=== PATIENT | female | born 1965 | race Caucasian/White ===

== ENCOUNTER → 2016-11-25 | Outpatient (CLI) | payer MEDICARE, MEDICAID ==
[~2016-11-25] MED LIST: ACET500C; AMOX-358 PO; ASPI-999; CALC-927; CETI10TA17; CHOL5000; CLIN300C11 PO; LISI-556; MAGN500T; METF500T4; MONT10TA24; TIZA2TAB3; TIZA4TAB3
--- OUTSIDE RECORDS SUMMARY | 2016-11-25 11:12 | XMS REPORT | Continuity of Care Document ---
Author Author [facility] Organization [facility] Address Unknown Phone Unavailable Care Team Providers Care Ux Consultant Name Role Phone Mariusz Glez PCP [phone] Source Comments Some departments are not documenting in the electronic medical record. If you do not see the information that you expected, contact Release of Information in the Health Information Management department at [phone] for further assistance in locating additional records.[facility] Active Allergies and Adverse Reactions Allergen Noted Date Severity Reactions Comments Pcn 03/03/2009 Current Medications Prescription Sig. Disp. Refills Start End Date Status Date rosiglitazone (AVANDIA) 4 Take 4 mg by mouth Daily Active mg tablet With Breakfast. Phenytoin Sodium Extended Take 300 mg by mouth At Active (PHENYTEK) 300 mg Cap Bedtime Daily. tizanidine (ZANAFLEX) 2 Take 2 mg by mouth Three Active mg tablet Times Daily. pregabalin (LYRICA) 75 mg Take 75 mg by mouth Twice Active capsule Daily. cetirizine (ZYRTEC) 10 mg Take 10 mg by mouth Active tablet Daily. aspirin 81 mg chew tablet Take 81 mg by mouth Active Daily. Yzcvwsm-Zeqofslzz-Vlgy Take 1 Tab by mouth. Active Tab acetaZOLAMIDE (DIAMOX Take 1,000 mg by mouth Active SEQUELS) 500 mg capsule twice daily. Take two 2xday cyanocobalamin (VITAMIN Take 1,000 mcg by mouth Active B-12, RUBRAMIN) 1,000 daily. mcg/mL injection fluticasone (FLONASE) 50 Apply 2 Sprays to each Active mcg/actuation nasal spray nostril as directed daily. medroxyPROGESTERone Inject 150 mg to area(s) Active (contraceptive) as directed every 90 (DEPO-PROVERA) syringe days. metFORMIN (GLUCOPHAGE) Take 500 mg by mouth Active 500 mg tablet daily. montelukast (SINGULAIR) Take 10 mg by mouth at Active 10 mg tablet bedtime daily. 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 We have had some difficulty finding a regimen which does not cause too many side effects but which also adequately treats her leg cramps when walking. She has remained fairly stable on this regimen for some time, and the Diamox seems to have been more effective for her than the Zanaflex, so consideration could be made for tapering down slowly on the Zanaflex. I am reluctant to do so right now, however this could be a consideration in the future. Care would need to be taken to quantify how far Ms. Juarez is able to walk before developing leg cramps because she, understandably, is frustrated by the leg cramps and might give the impression that they occur more easily than is actually the case. L ast Assessment & Plan: 1. Continue current dose of Zanaflex and Diamox with continued monitoring of electrolytes by PCP 2. Consideration could be made for very slowly tapering off the Zanaflex (ie by 1/2 tablet every 2 weeks) with careful documentation of length of trip before leg cramps begin 3. Due to the distance involved in traveling to for follow-up appointments, Ms. Juarez and her care providers prefer to have Dr. Bower manage her Zanaflex and Diamox for now. I believe that she would do well on the current regimen, however as stated above, a very slow titration down on the Zanaflex could be considered. I am happy to see Ms. Juarez back in follow-up should there be any further questions or concerns, however a follow-up appointment has not been scheduled. 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 Cerebral palsy (HCC) 03/04/2009 Unclassified epileptic seizures (HCC) 03/04/2009 Social History Tobacco Use Types Packs/Day Years Used Date Never Smoker Alcohol Use Drinks/Week oz/Week Comments No Last Filed Vital Signs Vital Sign Reading Time Taken Blood Pressure 140/79 10/02/2012 1:18 PM BLEACH PACKER Pulse 68 10/02/2012 1:18 PM BLEACH PACKER Temperature 37 C (98.6 F) 03/08/2009 7:55 AM CDT Respiratory Rate 16 10/02/2012 1:18 PM BLEACH PACKER Height 1.626 m (5' 4") 10/02/2012 1:18 PM BLEACH PACKER Weight 80.74 kg (178 lb) 10/02/2012 1:18 PM BLEACH PACKER Body Mass Index 30.54 10/02/2012 1:18 PM BLEACH PACKER Oxygen Saturation 100% 03/08/2009 7:55 AM CDT Plan of Care Health Maintenance Due Date Last Done Comments Physical (Comprehensive) 1970 Exam Pertussis Vaccine 1974 Tetanus Vaccine 1980 Cervical Cancer Screening 1984 Breast Cancer Screening 2003 Colorectal Cancer 2013 Screening Influenza Vaccine 06/23/2016 Results from Last 3 Months Not on file
--- NOTE | 2016-11-30 19:16 | Diagnostic Imaging Report ---
Bilateral screening mammogram The current study was also evaluated with a Computer Aided Detection (CAD) system. Indication: Screening. No current complaints stated on the questionnaire. COMPARISON: 11/06/15. FINDINGS: The breasts are composed of heterogeneously dense parenchyma which may decrease mammographic sensitivity. No mass, architectural distortion or suspicious cluster of calcification. Benign-appearing calcifications seen. Allowing for technique and positional differences, no suspicious change is seen. IMPRESSION: No significant change. ACR BI-RADS Category 2: Benign findings. Result letter will be mailed to the patient. Note: At least 10% of breast cancer is not imaged by mammography. Dictated by: Dictated on workstation # [id number]
== END ==
LOC: RAD 11:08
PROVIDERS: ATTEND Nurse Practitioner Family
DX: Z12.31 Encounter for screening mammogram for malignant neoplasm of breast (principal)
CPT/HCPCS: 77067

== ENCOUNTER → 2017-07-21 | Outpatient (CLI) | payer MEDICARE, MEDICAID ==
--- NOTE | 2017-07-21 13:49 | Diagnostic Imaging Report ---
INDICATION: Right neck pain. FINDINGS: Real-time imaging of an area of pain shows normal appearing right parotid gland and submandibular gland. Ducts do not appear dilated. The right carotid and jugular vein appear normal. No cervical chain adenopathy is demonstrated. The right lobe of the thyroid measures 5.2 x 2.1 x 1.8 cm. There are two complex hypoechoic solid nodules both measuring approximately 1.4 cm in the midportion. The left lobe measures 3.7 x 1.7 x 1.7 cm. There is an oval hypoechoic nodule midportion left lobe measuring 8 x 5 x 8 mm. There is also a 9 mm cyst present in the left lobe. IMPRESSION: 1. No abnormal findings noted in the right side of the neck where patient complains of pain. 2. Incidentally noted are thyroid nodules bilaterally as described. Followup recommended. Dictated by: Dictated on workstation # [id number]
== END ==
LOC: RAD 12:13
PROVIDERS: ATTEND Nurse Practitioner Family
DX: M54.2 Cervicalgia (principal); E04.2 Nontoxic multinodular goiter
CPT/HCPCS: 76536

== ENCOUNTER → 2017-08-08 | Outpatient (CLI) | payer MEDICARE, MEDICAID ==
[2017-08-08 11:28] LABS: THYROID STIMULATING HORMONE 1.19 UIU/ML (0.35-4.94)
== END ==
LOC: LAB 10:18
PROVIDERS: ATTEND Nurse Practitioner Family
DX: E04.1 Nontoxic single thyroid nodule (principal)
CPT/HCPCS: 36415; 84439; 84443

== ENCOUNTER → 2017-08-15 | Outpatient (CLI) | payer MEDICARE, MEDICAID ==
--- NOTE | 2017-08-16 12:01 | Diagnostic Imaging Report ---
Thyroid scan and uptake Technique: After the oral administration of one ?Ci of I-123 capsule, 4 hour and 24-hour uptake is measured and plantar images over the thyroid gland obtained. Indication: Thyroid nodule FINDINGS: Thyroid uptake at 4 hours is 8.1 %, and the at 24 hours is 24 %. Planar images demonstrate slight heterogeneity in the uptake without a discrete cold or hot nodule. IMPRESSION: Normal thyroid uptake and scan. Dictated by: Dictated on workstation # [id number]
== END ==
LOC: CARD 11:13
PROVIDERS: ATTEND Nurse Practitioner Family
DX: E04.1 Nontoxic single thyroid nodule (principal)
CPT/HCPCS: 78014

== ENCOUNTER → 2017-11-10 | Outpatient (CLI) | payer MEDICARE, MEDICAID ==
[~2017-11-10] MED LIST changes: +IOHEXOL 350 MG/ML 100 ML (OMNIPAQUE 350) VIAL IV ONE; +NS 100 ML (IVPB) BAG IV ONE
[2017-11-10 10:46] LABS: HEMOGLOBIN 13.3 G/DL (11.5-16.0); MEAN PLATELET VOLUME 10.1 FL (7.4-10.4); RED BLOOD COUNT 4.32 10^6/uL (4.35-5.85); RED CELL DISTRIBUTION WIDTH 13.7 % (10.0-14.5); WHITE BLOOD COUNT 5.3 10^3/uL (4.3-11.0)
[2017-11-10 11:08] LABS: BUN/CREATININE RATIO 32; CREATININE SERUM 0.82 MG/DL (0.60-1.30); GFR ESTIMATED > 60
[2017-11-10] MEDS: IOHEXOL 350 MG/ML 100 ML (OMNIPAQUE 350) VIAL IV ONE (11:23)
[2017-11-10] MEDS: NS 100 ML (IVPB) BAG IV ONE (11:23)
[2017-11-10 11:34] LABS: FREE T4 (FREE THYROXINE) 0.94 NG/DL (0.70-1.48)
--- NOTE | 2017-11-10 12:04 | Diagnostic Imaging Report ---
PROCEDURE: CT neck soft tissue with contrast. TECHNIQUE: Multiple contiguous axial images were obtained through the neck after the administration of contrast. INDICATION: Neck pain and sore throat as well as right ear pain. COMPARISON: Comparison is made with prior CT neck from 11/10/2014. FINDINGS: The visualized intracranial structures are unremarkable. Posterior nasopharynx, oropharynx and larynx are unremarkable. The bilateral parotid and submandibular glands appear to be symmetric. No cervical lymphadenopathy is detected. No fluid collections are seen. There is a 9 mm nodule left thyroid lobe, stable. IMPRESSION: Essentially unremarkable CT of the soft tissues of the neck. Dictated by: Dictated on workstation # [id number]
== END ==
LOC: RAD 10:27
PROVIDERS: ATTEND Otolaryngology Otolaryngology/Facial Plastic Surgery
DX: M54.2 Cervicalgia (principal); J02.9 Acute pharyngitis, unspecified; H92.01 Otalgia, right ear
CPT/HCPCS: 36415; 70491; 82565; 84439; 84443; 84520; 85027; 85652

== ENCOUNTER → 2017-12-08 | Outpatient (CLI) | payer MEDICARE, MEDICAID ==
[~2017-12-08] MED LIST changes: -IOHEXOL 350 MG/ML 100 ML (OMNIPAQUE 350) VIAL IV ONE; -NS 100 ML (IVPB) BAG IV ONE
--- NOTE | 2017-12-08 13:45 | Diagnostic Imaging Report ---
INDICATION: Fall with left hand pain. AP, oblique, and lateral views of the left hand are obtained. No fracture or acute bony abnormality is seen. IMPRESSION: Negative left hand. Message left regarding negative findings at 1:44 p.m. 12/08/2017/maryana Dictated by: Dictated on workstation # [id number]
--- NOTE | 2017-12-08 13:59 | Diagnostic Imaging Report ---
INDICATION: Fall with left elbow pain. AP, oblique, and lateral views of the left elbow are obtained. No definite fracture or acute bony abnormality is seen. There is some mild chronic-appearing irregularity of the lateral humeral epicondyle. There is no elevation of the posterior fat pad. There is mild joint space narrowing. IMPRESSION: Mild chronic changes with no acute-appearing bony abnormality. There is no elevation of the posterior fat pad. Message left with [phone] at 1:44 p.m. 12/08/2017/maryana Dictated by: Dictated on workstation # [id number]
--- NOTE | 2017-12-08 14:01 | Diagnostic Imaging Report ---
INDICATION: Left wrist pain. AP, oblique, and lateral views of the left wrist are obtained. No fracture or acute bony abnormality is seen. IMPRESSION: Negative left wrist. Message left with [phone] at 1:44 p.m. 12/08/2017/maryana Dictated by: Dictated on workstation # [id number]
== END ==
LOC: RAD 12:18
PROVIDERS: ATTEND Family Medicine
DX: S50.02XA Contusion of left elbow, initial encounter (principal); M79.642 Pain in left hand; W19.XXXA Unspecified fall, initial encounter
CPT/HCPCS: 73080; 73110; 73130

== ENCOUNTER → 2018-03-06 | Outpatient (CLI) | payer MEDICARE, MEDICAID ==
[~2018-03-06] MED LIST changes: -METF500T4; +METF500T5
--- NOTE | 2018-03-06 17:10 | Diagnostic Imaging Report ---
INDICATION: Right ankle injury. TIME OF EXAM: 5:04 p.m. FINDINGS: Three views of the right ankle were obtained. The alignment is normal. Ankle mortise is well maintained. The talar dome is smooth. No fracture or dislocation is seen. There are posterior and plantar calcaneal spurs. IMPRESSION: No acute fracture is identified. Dictated by: Dictated on workstation # [id number]
--- NOTE | 2018-03-06 17:29 | Diagnostic Imaging Report ---
INDICATION: Right foot pain. TIME OF EXAM: 05:07 p.m. FINDINGS: Three views of the right foot were obtained. There is an acute obliquely oriented fracture through the mid and distal aspects of the fifth metatarsal. No significant displacement or angulation is seen. Remaining metatarsals are intact. The phalanges are intact. Mid foot and hind foot are unremarkable apart from a plantar calcaneal spur. IMPRESSION: Obliquely oriented fifth metatarsal fracture, without displacement. Report given to [facility] ([facility] & faxed to SILVANA Peterson, at 5:26 p.m. 03/06/2018/maryana Dictated by: Dictated on workstation # [id number]
== END ==
LOC: RAD 16:31
PROVIDERS: ATTEND Nurse Practitioner Family
DX: S92.354A Nondisplaced fracture of fifth metatarsal bone, right foot, initial encounter for closed fracture (principal)
CPT/HCPCS: 73610; 73630

== ENCOUNTER → 2018-03-08 | Outpatient (CLI) | payer MEDICARE, MEDICAID ==
--- NOTE | 2018-03-08 18:40 | Diagnostic Imaging Report ---
INDICATION: Routine screening. COMPARISON: Comparison is made with prior exam from 11/25/2016 and 11/06/2015. TECHNIQUE: 2D and 3D bilateral screening mammography was performed with computer-aided detection (CAD) system. FINDINGS: Scattered fibronodular densities are identified bilaterally. There are benign-appearing calcifications bilaterally. No dominant mass or malignant appearing microcalcifications are seen. The axillae are unremarkable. IMPRESSION: No mammographic features suspicious for malignancy are identified. ACR BI-RADS Category 2: Benign findings. Result letter will be mailed to the patient. Note: At least 10% of breast cancer is not imaged by mammography. Dictated by: Dictated on workstation # [id number]
== END ==
LOC: RAD 13:38
PROVIDERS: ATTEND Nurse Practitioner Family
DX: Z12.31 Encounter for screening mammogram for malignant neoplasm of breast (principal)
CPT/HCPCS: 77067

== ENCOUNTER → 2018-07-23 | Outpatient (CLI) | payer MEDICARE, MEDICAID ==
[~2018-07-23] MED LIST changes: +GADOBUTROL 7.5 MMOL/7.5 ML (GADAVIST) VIAL IV ONE; +METF-397; -METF500T5
[2018-07-23 11:02] LABS: BUN/CREATININE RATIO 27; CREATININE SERUM 0.88 MG/DL (0.60-1.30); GFR ESTIMATED > 60
--- NOTE | 2018-07-23 12:01 | Diagnostic Imaging Report ---
PROCEDURE: US Thyroid. TECHNIQUE: Multiple real-time grayscale images were obtained of the thyroid in various projections. INDICATION: Thyroid nodules. Correlation is made with prior soft tissue neck ultrasound from 07/21/2017. FINDINGS: Right lobe of the thyroid measures 4.8 x 2.0 x 1.8 cm and the left lobe measures 4.8 x 1.9 x 1.8 cm. Bilateral thyroid nodules are present. The largest nodule on the left is complex mixed solid and cystic in the lower pole measuring 8 mm x 10 mm x 11 mm. Solid-appearing nodule in the upper pole of left lobe measures approximately 10 mm x 6 mm x 6 mm. On the right, a solid nodule in the upper pole measures 1.3 x 1.2 x 1.0 cm. A nodule in the lower pole measures 1.7 x 1.7 x 1.1 cm. These nodules measured approximately 1.4 cm from prior exam. IMPRESSION: Bilateral thyroid nodules. The largest is in the lower pole of the right lobe which appears to have increased slightly in size when compared with examination one year earlier. Fine-needle aspiration could be performed. Dictated by: Dictated on workstation # [id number]
--- NOTE | 2018-07-23 12:39 | Diagnostic Imaging Report ---
PROCEDURE: MR imaging cervical spine with and without contrast. TECHNIQUE: Multiplanar and multisequence MRI of the cervical spine was performed with and without contrast. INDICATION: Chronic right-sided neck pain. No prior studies are available for comparison. Curvature and alignment of the cervical spine is normal. Vertebral body marrow signal is normal. No geographic marrow lesion is seen. Disc heights are fairly well-maintained. There is generalized desiccation noted. The cervical cord does show homogeneous signal intensity and normal morphology. C2-3: No central canal or neural foraminal stenosis is identified. C3-4: No definite central canal or neural foraminal stenosis is identified. C4-5: There are endplate osteophytes indenting the ventral thecal sac. This does produce mild/moderate narrowing of the canal. There is also moderate bilateral neural foraminal narrowing. C5-6: Broad-based disc/osteophyte complex indents the ventral thecal sac. No significant central canal or neural foraminal stenosis is seen. C6-7: Endplate osteophytes are present. No central canal or neural foraminal stenosis is identified. C7-T1: Unremarkable. No abnormal enhancement following contrast administration is identified. IMPRESSION: Mild cervical spondylosis, greatest at C4-5 level where there is some central canal and neural foraminal narrowing. No other significant abnormality is seen. Dictated by: Dictated on workstation # [id number]
== END ==
LOC: RAD 10:29
PROVIDERS: ATTEND Otolaryngology Otolaryngology/Facial Plastic Surgery
DX: E04.2 Nontoxic multinodular goiter (principal); M47.812 Spondylosis without myelopathy or radiculopathy, cervical region; M48.02 Spinal stenosis, cervical region; M99.71 Connective tissue and disc stenosis of intervertebral foramina of cervical region
CPT/HCPCS: 36415; 72156; 76536; 82565; 84520

== ENCOUNTER → 2018-11-21 | Outpatient (CLI) | payer MEDICARE, MEDICAID ==
[~2018-11-21] MED LIST changes: -GADOBUTROL 7.5 MMOL/7.5 ML (GADAVIST) VIAL IV ONE
--- NOTE | 2018-11-21 12:32 | Diagnostic Imaging Report ---
PROCEDURE: US Thyroid. TECHNIQUE: Multiple real-time grayscale images were obtained of the thyroid in various projections. INDICATION: Thyroid nodule. FINDINGS: The previous thyroid ultrasound exam of 07/23/2018 noted multiple thyroid nodules. These seemed similar to the prior exam of 07/21/2017 with the exception of a nodule in the inferior pole of the right lobe of the thyroid. This nodule measured 1.7 x 1.7 x 1.1 cm. On this study, that nodule does not appear to have changed significantly. It now measures 1.1 x 1.9 x 1.3 cm. Visually this nodule seems quite similar to the prior exam. I would concur with recommendation of the previous study that if further evaluation is desired, then ultrasound-guided biopsy could be performed. If there is no intervention at this time, then a short-term (three-month) follow-up thyroid ultrasound exam should be obtained. The overall appearance of the thyroid gland has not changed. There are multiple hypoechoic lesions in both lobes. The thyroid gland itself is not enlarged with the right lobe measuring 4.4 x 1.8 x 1.9 cm and the left lobe is estimated to be 4.6 x 1.5 x 1.6 cm (normal gland size 4-5 x 2 x 2 cm or less). IMPRESSION: 1. The complex nodule in the inferior pole of the right lobe of thyroid seen on the previous study does not appear to have changed significantly. The relative stability of this finding over a three-month period would indicate that it is not related to an aggressive process. Recommendations as above. 2. The overall appearance of the thyroid gland has not changed significantly either. No new abnormality has developed. 3. These results will be discussed with Dr. Coe. Dictated on workstation # [id number]
== END ==
LOC: RAD 10:12
PROVIDERS: ATTEND Otolaryngology Otolaryngology/Facial Plastic Surgery
DX: E04.2 Nontoxic multinodular goiter (principal)
CPT/HCPCS: 76536

== ENCOUNTER → 2019-06-04 | Outpatient (CLI) | payer MEDICARE, MEDICAID ==
[~2019-06-04] MED LIST changes: -TIZA2TAB3; +TIZA2TAB4; -TIZA4TAB3; +TIZA4TAB4
--- NOTE | 2019-06-04 13:47 | Diagnostic Imaging Report ---
PROCEDURE: US Thyroid. TECHNIQUE: Multiple real-time grayscale images were obtained of the thyroid in various projections. INDICATION: Thyroid nodules. COMPARISON: Correlation is made with prior thyroid ultrasound from 11/21/2018. FINDINGS: Right lobe of the thyroid measures 5.0 x 2.4 x 2.1 cm and the left lobe measures 4.4 x 1.2 x 1.8 cm. Multiple bilateral thyroid nodules are identified. Largest nodule on the right is in the lower pole measuring 2.0 x 1.3 x 1.2 cm. This compares with 1.9 x 1.3 x 1.1 cm on prior. This does contain some microcalcifications. The nodule in the midportion of the right lobe measures 1.2 x 0.8 x 1.4 cm compared with 1.0 x 0.8 x 1.0 cm on prior. No microcalcifications are identified. On the left, nodule at upper pole appears to be stable at 1.0 x 0.5 x 0.8 cm compared to 1.0 x 0.7 x 0.9 cm on prior. Mixed solid and cystic nodule lower pole left lobe measures slightly larger at 1.4 x 1.1 x 1.0 cm compared with 1.0 x 0.9 x 0.8 cm on prior. IMPRESSION: Bilateral thyroid nodules. The nodules in the lower poles of both the right and left lobe do measure slightly larger when compared with prior ultrasound from 11/21/2018. Dictated by: Dictated on workstation # [id number]
== END ==
LOC: RAD 11:07
PROVIDERS: ATTEND Otolaryngology Otolaryngology/Facial Plastic Surgery
DX: E04.2 Nontoxic multinodular goiter (principal)
CPT/HCPCS: 76536

== ENCOUNTER 2019-07-10 11:15 | Outpatient (CLI) | payer MEDICARE, MEDICAID ==
[~2019-07-10] VITALS: Ht 170.2 cm; Wt 83.1 kg
[~2019-07-10 11:15] MED LIST changes: -ACET500C; +ACET500C PO; -ASPI-999; +ASPI-999 PO; -CETI10TA17; +CETI10TA17 PO; -LISI-556; +LISI-556 PO; -MAGN500T; +MAGN500T PO; -METF-397; +METF-397 PO; -MONT10TA24; +MONT10TA24 PO
[2019-07-10] MEDS ORDERED: CALC1TAB94 PO (12:18)
[2019-07-10] MEDS ORDERED: LORA10TA7 PO (12:26)
[2019-07-10] MEDS ORDERED: GABA-488 PO ×2 (12:26)
[2019-07-10] MEDS ORDERED: MELO15TA39 PO (12:26)
== END 2019-07-10 12:27 | disposition home or self-care (01) ==
LOC: PREOP 11:15
PROVIDERS: ATTEND Surgery
DX: Z01.818 Encounter for other preprocedural examination (principal)

== ENCOUNTER 2019-07-15 06:42 | Day surgery (SDC) | payer MEDICARE, MEDICAID ==
[~2019-07-15] VITALS: Ht 170.2 cm; Wt 83.1 kg
[~2019-07-15 06:42] MED LIST changes: +CALC1TAB94 PO; +GABA-488 PO; +LORA10TA7 PO; +MELO15TA39 PO
[2019-07-15] MEDS ORDERED: LACTATED RINGERS 1,000 ML IV ONE (06:47)
[2019-07-15] MEDS ORDERED: LACTATED RINGERS 1,000 ML IV STA (06:55)
[2019-07-15 07:03] VITALS: BP 138/73
[2019-07-15] MEDS ORDERED: PROPOFOL INJECTION 50 ML IV ONE (07:10)
[2019-07-15] MEDS ORDERED: MIDAZOLAM 2 MG/2 ML (VERSED) VIAL ONE (07:10)
--- NOTE | 2019-07-15 08:15 | Progress Note-Pre Operative ---
Pre-Operative Progress Note H&P Reviewed The H&P was reviewed, patient examined and no changes noted. Time Seen by Provider: 08:07 Date H&P Reviewed: Jul 15, 2019 Time H&P Reviewed: 08:08 Pre-Operative Diagnosis: + CologCYDNEY Gama DO Jul 15, 2019 08:15
[2019-07-15 08:45] VITALS: BP 118/69
[2019-07-15 08:48] VITALS: BP 124/79
[2019-07-15 09:11] VITALS: BP 132/81
[2019-07-15 09:13] VITALS: BP 132/81
--- NOTE | 2019-07-15 09:53 | Progress Note-Post Operative ---
Post-Operative Progess Note Surgeon (s)/Pewter Caster (s) Surgeon CYDNEY BARDALES DO Pewter Caster: none Pre-Operative Diagnosis + Cologuard Post-Operative Diagnosis Flat Polyp near Appendix Diverticula Int Hemorrhoids poor prep Procedure & Operative Findings Date of Procedure 07/15/19 Procedure Performed/Findings colon with hot bx Anesthesia Type IV sedation by SPIKE DRIVER Estimated Blood Loss Estimated blood loss (mL): scant Specimens/Packing Specimens Removed bx near CYDNEY Torres DO Jul 15, 2019 09:53
--- NOTE | 2019-07-15 09:55 | Endoscopy Discharge Instruct ---
Endo Procedure/Findings Findings 1.: Polyp 2.: Diverticulosis 3.: Internal Hemorrhoids Discharge Instructions - Activity: You might feel a little sleepy until tomorrow. This is due to the medicine you received to relax you. Until tomorrow, you should: NOT drive a car, operate machinery or power tools. NOT drink any alcoholic beverages. NOT make any important decisions or sign importortant papers. Do not return to work until tomorrow, unless otherwise instructed. Resume previous activities tomorrow. Diet: Start by taking liquids. If you tolerate liquids, advance to solid food. make an appointment for one week 1.: Colonoscopy in 1 year Notify Physician - If you experience excessive bleeding, unusual abdominal pain, fever, or chest pain, contact your doctor immediately. CYDNEY BARDALES DO Jul 15, 2019 09:54
--- NOTE | 2019-07-15 10:08 | Anesthesia-General Post-Op ---
MAC Patient Condition Mental Status/LOC: Same as Preop Cardiovascular: Satisfactory Nausea/Vomiting: Absent Respiratory: Satisfactory Pain: Controlled Complications: Absent Post Op Complications Complications None Follow Up Care/Instructions Patient Instructions None needed. Anesthesiology Discharge Order Discharge Order Patient is doing well, no complaints, stable vital signs, no apparent adverse anesthesia problems. No complications reported per nursing. AYDIN CAMARGO CRNA Jul 15, 2019 10:08
--- NOTE | 2019-07-16 02:35 | OPERATIVE REPORT ---
DATE OF SERVICE: 07/15/2019 PREOPERATIVE DIAGNOSIS: Positive Cologuard. POSTOPERATIVE DIAGNOSES: 1. Polyp near the appendix. 2. Diverticula. 3. Internal hemorrhoids. 4. Poor prep. PROCEDURE: Colonoscopy with hot biopsy. SURGEON: Blue Dawson DO HAZARDOUS MATERIALS TANKER DRIVER: None. ANESTHESIA: IV sedation by HOSPITAL NURSE. SPECIMEN: One biopsy of the polyp near the appendix. BLOOD LOSS: Scant. FLUIDS: Per anesthesia. POSTOPERATIVE CONDITION: Stable. INDICATION FOR PROCEDURE: The patient is a 54-year-old female who had a positive Cologuard test and needed a colonoscopy. FINDINGS: The patient had one flat polyp near the appendix. She had multiple diverticula throughout the colon. She also had some internal hemorrhoids. Unfortunately, she had a poor prep, unable to clear the colon because there is too much retained fecal material. PROCEDURE NOTE: After informed consent was obtained, the patient was brought to the endoscopy suite and placed in the bed in left lateral decubitus position. She was administered IV sedation by the HOSPITAL NURSE who then monitored her vitals the entire time, heart rate, blood pressure and pulse ox and the scope was inserted, pushed all the way to [address], noted a lot of retained fecal material, could not suction all this up, able to get to the cecum and in the cecum saw what looked like a flat polyp right near the appendix. Elected to do a hot biopsy of this and then slowly withdrew the scope insufflating the circumferential ragsdale in the cecum up the ascending colon to the hepatic flexure, then down the transverse colon, splenic flexure, into the descending colon and then down into the sigmoid. Throughout here, saw some diverticula, continued down into the rectum, retroflexed the rectal vault, saw some minimal internal hemorrhoids. Again, saw throughout the colon, lot of retained fecal material, unable to clear the colon completely because could not see all the ragsdale, could have missed some flat polyps. At this point, I removed the scope. The patient tolerated the procedure and she was recovered in endoscopy suite. She will need a repeat within a year because of this poor prep. Job ID: [id number] DocumentID: [id number] Dictated Date: 07/15/2019 17:42:35 Astrophysics Professor Date: 07/16/2019 01:43:33 Dictated By: BLUE DAWSON DO
== END 2019-07-15 09:57 | disposition home or self-care (01) ==
LOC: ENDO 06:42
PROVIDERS: ATTEND Surgery
DX: K63.5 Polyp of colon (principal); K38.8 Other specified diseases of appendix; K64.8 Other hemorrhoids; K92.1 Melena; R56.9 Unspecified convulsions; E11.9 Type 2 diabetes mellitus without complications; G80.9 Cerebral palsy, unspecified; I34.0 Nonrheumatic mitral (valve) insufficiency; I73.00 Raynaud's syndrome without gangrene; Z88.0 Allergy status to penicillin; Z90.49 Acquired absence of other specified parts of digestive tract; Z79.4 Long term (current) use of insulin; Z80.9 Family history of malignant neoplasm, unspecified
CPT/HCPCS: 82962

== ENCOUNTER → 2020-07-27 | Outpatient (CLI) | payer MEDICARE, MEDICAID ==
[~2020-07-27] MED LIST changes: +CALC-664 PO; -CALC1TAB94 PO; -MONT10TA24 PO; +MONT10TA26 PO; -TIZA2TAB4; +TIZA2TAB7
--- NOTE | 2020-07-27 15:00 | Diagnostic Imaging Report ---
PROCEDURE: US Thyroid. TECHNIQUE: Multiple Real-time grayscale images were obtained of the thyroid in various projections. INDICATION: Multinodular goiter. COMPARISON: Correlation is made with the prior exam from 06/04/2019. FINDINGS: The right lobe of the thyroid measures 4.8 x 1.4 x 1.7 cm and the left lobe measures 5.1 x 1.7 x 1.6 cm. The isthmus is 3 mm in thickness. Multiple bilateral thyroid nodules are noted. A solid nodule in the upper pole of the right lobe measures 1.1 x 1.1 x 0.6 cm. This is similar to perhaps slightly smaller when compared to the prior exam. A mixed solid and cystic nodule in the lower pole of the right lobe measures 1.3 x 1.9 x 1.2 cm. This is stable compared with the prior exam. A solid nodule in the upper pole of the left lobe is approximately 9 mm in size, stable. A mixed solid and cystic nodule in the mid portion of the left lobe measures 1.2 x 0.6 x 1.1 cm. This is new when compared to the prior exam. A mixed solid and cystic nodule in the lower pole of the left lobe is stable at 1.2 x 0.5 x 1.0 cm. IMPRESSION: Multinodular goiter. All nodules appear to be fairly similar to the prior exam from 06/04/2019 although there is a new mixed solid and cystic nodule in the midpole of the left lobe, as described. Continued followup is recommended to confirm stability. Dictated by: Dictated on workstation # [id number]
== END ==
LOC: RAD 11:54
PROVIDERS: ATTEND Otolaryngology Otolaryngology/Facial Plastic Surgery
DX: E04.2 Nontoxic multinodular goiter (principal)
CPT/HCPCS: 76536

== ENCOUNTER 2020-08-06 05:28 | Outpatient (RCR) | payer MEDICARE, MEDICAID ==
[~2020-08-06] VITALS: Ht 162 cm; Wt 197.2 kg
[~2020-08-06 05:28] MED LIST changes: +ACET500C40 PO; +FEXO-46 PO; +FLUT15.845 NS; +GABA300C PO
== END 2020-08-06 14:18 | disposition home or self-care (01) ==
LOC: PREOP 05:28
PROVIDERS: ATTEND Surgery
DX: Z01.818 Encounter for other preprocedural examination (principal)

== ENCOUNTER → 2020-08-07 | Outpatient (CLI) | payer MEDICARE, MEDICAID | LOC: LABNPT 05:45 | PROVIDERS: ATTEND Surgery | DX: Z53.9 Procedure and treatment not carried out, unspecified reason (principal) ==

== ENCOUNTER → 2020-08-13 | Outpatient (CLI) | payer MEDICARE, MEDICAID | LOC: LABNPT 05:45 | PROVIDERS: ATTEND Surgery | DX: R19.5 Other fecal abnormalities (principal); Z20.828 Contact with and (suspected) exposure to other viral communicable diseases | CPT/HCPCS: 87635 ==

== ENCOUNTER 2020-08-17 07:56 | Day surgery (SDC) | payer MEDICARE, MEDICAID ==
--- NOTE | 2020-08-10 13:53 | Anesthesia-General Post-Op ---
MAC Patient Condition Mental Status/LOC: Same as Preop Cardiovascular: Satisfactory Nausea/Vomiting: Absent Respiratory: Satisfactory Pain: Controlled Complications: Absent Post Op Complications Complications None Follow Up Care/Instructions Patient Instructions None needed. Anesthesiology Discharge Order Discharge Order Patient is doing well, no complaints, stable vital signs, no apparent adverse anesthesia problems. No complications reported per nursing. DIMITRI LOGAN CRNA Aug 10, 2020 13:53
[~2020-08-17] VITALS: Ht 162 cm; Wt 99.0 kg
[2020-08-17] MEDS ORDERED: LACTATED RINGERS 1,000 ML IV STA (08:04)
[2020-08-17] MEDS ORDERED: LACTATED RINGERS 1,000 ML IV ONE (08:04)
[2020-08-17 08:10] VITALS: BP 135/77
[2020-08-17] MEDS ORDERED: proPOfol 200 MG/20 ML (DIPRIVAN) VIAL IV ONE (09:45)
[2020-08-17 10:15] VITALS: BP 93/50
[2020-08-17 10:20] VITALS: BP 105/55
--- NOTE | 2020-08-17 10:22 | Progress Note-Post Operative ---
Post-Operative Progess Note Surgeon (s)/Dental Office Manager (s) Surgeon CYDNEY BARDALES DO Dental Office Manager: Christiano Mccormick Pre-Operative Diagnosis + Cologuard Post-Operative Diagnosis Diverticula Int hemorrhoids Procedure & Operative Findings Date of Procedure 08/17/20 Procedure Performed/Findings colonoscopy Anesthesia Type IV sedation by anesthesia Estimated Blood Loss Estimated blood loss (mL): none Specimens/Packing Specimens Removed none CYDNEY BARDALES DO Aug 17, 2020 10:22
--- NOTE | 2020-08-17 10:23 | Endoscopy Discharge Instruct ---
Endo Procedure/Findings Findings 1.: Diverticulosis, Internal Hemorrhoids Discharge Instructions - Activity: You might feel a little sleepy until tomorrow. This is due to the medicine you received to relax you. Until tomorrow, you should: NOT drive a car, operate machinery or power tools. NOT drink any alcoholic beverages. NOT make any important decisions or sign importortant papers. Do not return to work until tomorrow, unless otherwise instructed. Resume previous activities tomorrow. Diet: Start by taking liquids. If you tolerate liquids, advance to solid food. 1.: Colonscopy in 10 years Notify Physician - If you experience excessive bleeding, unusual abdominal pain, fever, or chest pain, contact your doctor immediately. CYDNEY BARDALES DO Aug 17, 2020 10:23
[2020-08-17 10:25] VITALS: BP 105/55
[2020-08-17 10:48] VITALS: BP 116/68
[2020-08-17 10:50] VITALS: BP 116/68
--- NOTE | 2020-08-17 12:42 | Anesthesia-General Post-Op ---
MAC Patient Condition Mental Status/LOC: Same as Preop Cardiovascular: Satisfactory Nausea/Vomiting: Absent Respiratory: Satisfactory Pain: Controlled Complications: Absent Post Op Complications Complications None Follow Up Care/Instructions Patient Instructions None needed. Anesthesiology Discharge Order Discharge Order Patient was seen this morning after the procedure and she was doing well, no complaints, stable vital signs, no apparent adverse anesthesia problems. ERI MISHRA DO Aug 17, 2020 12:41
--- NOTE | 2020-08-18 20:26 | OPERATIVE REPORT ---
DATE OF SERVICE: 08/17/2020 PREOPERATIVE DIAGNOSIS: Positive Hemoccult. POSTOPERATIVE DIAGNOSES: Diverticula, internal hemorrhoids. PROCEDURE: Colonoscopy. SURGEON: Blue Dawson DO LENS POLISHER: None. ANESTHESIA: IV sedation by the anesthesiologist. SPECIMENS: None. BLOOD LOSS: None. FLUIDS: Per anesthesia. POSTOPERATIVE CONDITION: Stable. INDICATION FOR PROCEDURE: The patient is a 55-year-old female who had a positive Hemoccult test and needed a colonoscopy. FINDINGS: The patient had some diverticula and small internal hemorrhoids. No other obvious pathology. PROCEDURE NOTE: After informed consent was obtained, the patient was brought to the endoscopy suite, placed in bed in left lateral decubitus position. She was administered IV sedation by the anesthesiologist who then monitored her vitals the entire time, heart rate, blood pressure and pulse ox and the scope was inserted, pushed all the way to about 100 cm, able to get to the cecum. On the way in, noted diverticula, took a picture. Once in the cecum, took a picture of appendiceal orifice, noted the ileocecal valve and then slowly withdrew the scope insufflating to look circumferentially at the [place] looking the cecum, up the ascending colon to the hepatic flexure, then down the transverse colon, splenic flexure, into the descending colon down in the sigmoid and finally into the rectum, retroflexed in rectal vault, saw some minimal internal hemorrhoids, took a picture and then removed the scope. The patient tolerated the procedure and she was recovered in endoscopy suite. Job ID: [id number] DocumentID: [id number] Dictated Date: 08/18/2020 11:56:28 Stringed Instrument Tuner Date: 08/18/2020 20:25:53 Dictated By: BLUE DAWSON DO
== END 2020-08-17 10:54 | disposition home or self-care (01) ==
LOC: ENDO 07:56
PROVIDERS: ATTEND Surgery
DX: K57.30 Diverticulosis of large intestine without perforation or abscess without bleeding (principal); K64.8 Other hemorrhoids; I10 Essential (primary) hypertension; E11.9 Type 2 diabetes mellitus without complications; Z79.84 Long term (current) use of oral hypoglycemic drugs; Z79.899 Other long term (current) drug therapy; Z88.0 Allergy status to penicillin; Z80.0 Family history of malignant neoplasm of digestive organs

== ENCOUNTER → 2021-05-05 | Outpatient (CLI) | payer MEDICARE, MEDICAID ==
[~2021-05-05] MED LIST changes: +CALC-1026 PO; -CALC-664 PO; -CLIN300C11 PO; +CLIN300C12 PO; -LISI-556 PO; +LISI-729 PO; -MONT10TA26 PO; +MONT10TA32 PO; +TIZA-169; -TIZA2TAB7
--- NOTE | 2021-05-05 15:28 | Diagnostic Imaging Report ---
PROCEDURE: US Thyroid. TECHNIQUE: Multiple real-time grayscale images were obtained of the thyroid in various projections. INDICATION: Followup thyroid nodules. Correlation is made with prior thyroid ultrasound from 07/27/2020. The right lobe of thyroid measures 4.9 x 1.5 x 1.8 cm and left lobe measures 4.3 x 1.4 x 2.0 cm. Isthmus is 2 mm in thickness. There are numerous bilateral thyroid nodules, some of them appear solid and several appear cystic or mixed cystic and solid. Nodule upper pole right lobe is similar in size approximately 1.1 x 0.8 x 1.2 cm. Nodule in the lower pole measures 1.8 x 1.0 x 1.3 cm, smaller when compared with prior exam. Numerous left-sided nodules are noted. Nodule in the upper pole measures 0.9 x 0.5 x 0.9 cm, stable. A nodule in the lower pole measures 1.1 x 0.6 x 0.9 cm, stable. Probably primarily fluid containing nodule in the mid left lobe has increased measuring 1.5 x 0.8 x 1.0 cm, compare with 1.2 x 0.6 x 1.1 cm. No new masses detected. IMPRESSION: Overall stable appearance to multiple bilateral thyroid nodules with the exception of slight increase in size of a cyst in the midportion of the left lobe when compared to examination from 07/27/2020. Dictated by: Dictated on workstation # [id number]
== END ==
LOC: RAD 12:45
PROVIDERS: ATTEND Otolaryngology Otolaryngology/Facial Plastic Surgery
DX: E04.2 Nontoxic multinodular goiter (principal)
CPT/HCPCS: 76536

== ENCOUNTER 2021-10-06 09:07 | Emergency (ER) | payer MEDICARE, MEDICAID ==
[~2021-10-06] VITALS: Ht 162 cm; Wt 86.0 kg
[~2021-10-06 09:07] MED LIST changes: +CLIN-144 PO; -CLIN300C12 PO; -LISI-729 PO; +LISI5TAB20 PO; +MONT-40 PO; -MONT10TA32 PO; +TIZA-186; -TIZA4TAB4
[2021-10-06 09:23] VITALS: BP 144/69
--- NOTE | 2021-10-06 09:31 | ED Lower Extremity ---
General Chief Complaint: Lower Extremity Stated Complaint: L FOOT BRUISED/SWOLLEN Source: patient, other ([facility] staff) (LAINEY CARTAGENA MED STUDENT) History of Present Illness Date Seen by Provider: Oct 06, 2021 Time Seen by Provider: 09:20 Initial Comments This is a 56 YO female presenting to the ED with left foot/ankle pain since falling on Monday. Pt states she slipped on wet floor in her home and has had pain since. Pain is worse with weight-bearing and walking and also notes some numbness and tingling. Tried Tylenol without improvement. Also notes some pain in her right knee, but is able to bear weight on it. Denies any other injuries, hitting her head, or losing consciousness. Pt lives at [facility] and staff member noticed the bruising and swelling on her ankle, so she brought the pt to the ED for evaluation. Method of Injury: fell (LAINEY CARTAGENA MED STUDENT) Allergies and Home Medications Allergies Coded Allergies: Penicillins (Verified Allergy, Unknown, 07/10/19) Patient Home Medication List Home Medication List Reviewed: Yes (LEA AZUL MD) Acetazolamide (Acetazolamide ER) 500 Mg Capsule.er, 500 MG PO BID, (Reported) Entered as Reported by: RAND ROSENBAUM on 08/05/20 104 Aspirin (Aspirin) 81 Mg Tab.chew, 81 MG PO DAILY, (Reported) Entered as Reported by: RAND ROSENBAUM on 08/05/20 1047 Calcium Carbonate/Vitamin D3 (Calcium 600 + Vit D 400 Tablet) 1 Each Tablet, 1 EACH PO DAILY, (Reported) Entered as Reported by: LEANN LIMON on 07/10/19 1218 Cetirizine HCl (Cetirizine HCl) 10 Mg Tablet, 10 MG PO DAILY, (Reported) Entered as Reported by: BELINDA LARSON on 08/21/16 1712 Fexofenadine HCl (Fexofenadine HCl) 180 Mg Tablet, 180 MG PO DAILY, (Reported) Entered as Reported by: RAND ROSENBAUM on 08/05/20 1047 Fluticasone Propionate (Fluticasone Propionate) 15.8 Ml [place].susp, 15.8 ML NS DAILY, (Reported) Entered as Reported by: RAND ROSENBAUM on 08/05/20 1047 Gabapentin (Neurontin) 300 Mg Capsule, 300 MG PO BID, (Reported) Entered as Reported by: RAND ROSENBAUM on 08/05/20 1047 Gabapentin (Neurontin) 300 Mg Capsule, 600 MG PO HS, (Reported) Entered as Reported by: RAND ROSENBAUM on 08/05/20 1047 Lisinopril (Lisinopril) 5 Mg Tablet, 5 MG PO DAILY, (Reported) Entered as Reported by: BELINDA LARSON on 08/21/16 171 Loratadine (Loratadine) 10 Mg Tablet, 10 MG PO HS, (Reported) Entered as Reported by: LEANN LIMON on 07/10/19 1226 Magnesium Oxide (Magnesium Oxide) 500 Mg Tablet, 500 MG PO DAILY, (Reported) Entered as Reported by: BELINDA LARSON on 08/21/161711 Meloxicam (Meloxicam) 15 Mg Tablet, 15 MG PO DAILY, (Reported) Entered as Reported by: LEANN LIMON on 07/10/19 1226 Metformin HCl (Metformin HCl) 500 Mg Tablet, 500 MG PO DAILY, (Reported) Entered as Reported by: BELINDA LARSON on 08/21/16 171 Montelukast Sodium (Montelukast Sodium) 10 Mg Tablet, 10 MG PO DAILY@1600, (Reported) Entered as Reported by: BELINDA LARSON on 08/21/161711 Review of Systems Constitutional: No chills, No fever EENTM: No blurred vision, No double vision Respiratory: No cough, No dyspnea on exertion Cardiovascular: No chest pain, No palpitations Gastrointestinal: No nausea, No vomiting Genitourinary: no symptoms reported Musculoskeletal: see HPI Skin: see HPI Psychiatric/Neurological: Numbness, Paresthesia (LAINEY CARTAGENA MED STUDENT) All Other Systems Reviewed Negative Unless Noted: Yes (Negative excepted noted.) (LAINEY CARTAGENA MED STUDENT) Past Spuftjr-Artaql-Osteqa Hx Immunizations Up To Date Tetanus Booster (TDap): Unknown (LAINEY CARTAGENA MED STUDENT) Seasonal Allergies Seasonal Allergies: Yes (LAINEY CARTAGENA MED STUDENT) Past Medical History Surgeries: Yes Gallbladder Respiratory: No Currently Using CPAP: No Currently Using BIPAP: No Cardiac: Yes Hypertension Neurological: Yes Cerebral Palsy, Seizure Disorder Reproductive Disorders: No Female Reproductive Disorders: Denies Sexually Transmitted Disease: No HIV/AIDS: No Genitourinary: No Gastrointestinal: No Musculoskeletal: No Endocrine: Yes Diabetes, Insulin dep HEENT: No Loss of Vision: Denies Hearing Impairment: Denies Cancer: No Psychosocial: Yes (MR) Integumentary: No Blood Disorders: No (LAINEY CARTAGENA MED STUDENT) Family Medical History No Pertinent Family Hx (LAINEY CARTAGENA [employer]) Physical Exam Vital Signs Vital Signs - First Documented 10/06/21 09:23 Temp 36.6 Pulse 74 Resp 18 B/P (MAP) 144/69 (94) Pulse Ox 95 O2 Delivery Room Air (LEA AZUL MD) Vital Signs Capillary Refill : (LAINEY CARTAGENA [employer]UDENT) Height, Weight, BMI Height: 5'5" Weight: 190lbs. oz. 86.792585sg; 37.72 BMI Method:Stated General Appearance: WD/WN, no apparent distress HEENT: PERRL/EOMI; No scleral icterus (R), No scleral icterus (L) Neck: supple, normal inspection Cardiovascular: regular rate, rhythm, no edema, no murmur, other (2+ DP pulses) Respiratory: lungs clear, normal breath sounds, no respiratory distress, no accessory muscle use Gastrointestinal: non tender, soft; No distended Knees: bilateral knee non-tender, bilateral knee deformity Ankles: right ankle non-tender, right ankle normal inspection; left ankle ecchymosis, left ankle limited range of motion, left ankle pain, left ankle soft tissue tenderness, left ankle swelling Feet: right foot non-tender, right foot normal inspection; left foot e cchymosis, left foot limited range of motion, left foot pain, left foot soft tissue tenderness, left foot swelling Neurologic/Psychiatric: alert, normal mood/affect, oriented x 3 Skin: normal color, warm/dry (LAINEY CARTAGENA MED STUDENT) Progress/Results/Core Measures Results/Orders My Orders Orders - LEA AZUL MD Ankle, Left, 3 Views (10/06/21 09:52) Foot, Left, 3 Views (10/06/21 09:52) Ibuprofen Tablet (Motrin Tablet) (10/06/21 11:00) (LEA AZUL MD) Vital Signs/I&O 10/06/21 10/06/21 09:23 11:31 Temp 36.6 Pulse 74 76 Resp 18 18 B/P (MAP) 144/69 (94) Pulse Ox 95 98 O2 Delivery Room Air Room Air (LEA AZUL MD) Progress Progress Note : Time: 11:12 Progress Note 56-year-old female with a mechanical trip and fall 5 days ago. Progressive s welling and discoloration and discomfort to the left foot and ankle. No other complaints of injury. Examination pertinent for significant swelling especially involving the lateral malleolus of the left ankle. Extensive bruising over the dorsum of the foot ankle lateral and posterior. Neurovascularly intact. Patient's x-rays reviewed, negative x-rays of the left foot and ankle. Patient will be provided an Riki wrap, elevation ice, NSAIDs as needed for pain. Vital signs are stable, no other complaints of recent illness or injury. I have reviewed the plan of care with caregiver at the bedside. All questions are sought and answered. (LEA AZUL MD) Diagnostic Imaging Comments [facility] [place] [place] NAME: MARJ AGUILAR [facility] REC#: [id number] PT STATUS: REG ER : 1965 PHYSICIAN: LEA AZUL MD ADMIT DATE: 10/06/21/ER Draft Date of Exam:10/06/21 ANKLE, LEFT, 3 VIEWS INDICATION: Fall, left ankle pain, swelling. COMPARISON: None FINDINGS: 3 views of the left ankle demonstrate no fracture or dislocation. Articular surfaces are age-appropriate. No foreign body seen. IMPRESSION: No fracture identified. Dictated on workstation # [id number] Dict: 10/06/21 1025 Trans: 10/06/21 1030 FRANKIE [id number] Interpreted by: LEONARDO DOS SANTOS Electronically signed by: [facility] [place] NAME: MARJ AGUILAR [facility] REC#: [id number] PT STATUS: REG ER : 1965 PHYSICIAN: LEA AZUL MD ADMIT DATE: 10/06/21/ER Draft Date of Exam:10/06/21 FOOT, LEFT, 3 VIEWS INDICATION: Fall left foot injury COMPARISON: None. FINDINGS: 3 views left foot demonstrate no overt fracture or dislocation. No bony erosion or foreign body is seen. IMPRESSION: No fracture identified. Dictated on workstation # [id number] Dict: 10/06/21 1026 Trans: 10/06/21 1030 [facility] [id number] Interpreted by: LEONARDO DOS SANTOS Electronically signed by: (LEA AZUL MD) Departure Impression Primary Impression: Moderate left ankle sprain Qualified Codes: S93.402A - Sprain of unspecified ligament of left ankle, initial encounter Disposition: HOME, SELF-CARE Condition: Stable Departure-Patient Inst. Decision time for Depature: 11:14 (LEA AZUL MD) Referrals: [facility] [place] (PCP/Family) Primary Care Physician Patient Instructions: Ankle Sprain ED Add. Discharge Instructions: Elevate the left foot to reduce swelling. You can also apply ice packs off and on 3 times a day for the swelling. Ibuprofen 800 mg which is 4 [id number] Advil or ibuprofen, every 8 hours with food as needed for pain. Do this for no longer than 5 days in a row. Riki wrap to help keep the swelling down. Walk on the ankle as tolerated. Return to the emergency room for any new, concerning or emergent complaints. Follow-up with her doctor as needed. Verification and Attestation of Medical Student E/M Service A medical student performed and documented this service in my presence. I reviewed and verified all information documented by the medical student and made modifications to such information, when appropriate. I personally performed the physical exam and medical decision making. Lea Azul, Oct 06, 2021,11:14 (LEA AZUL MD) LAINEY CARTAGENA MED STUDENT Oct 06, 2021 09:31 LEA AZUL MD Oct 06, 2021 11:16
--- NOTE | 2021-10-06 10:31 | Diagnostic Imaging Report ---
INDICATION: Fall, left ankle pain, swelling. COMPARISON: None FINDINGS: 3 views of the left ankle demonstrate no fracture or dislocation. Articular surfaces are age-appropriate. No foreign body seen. IMPRESSION: No fracture identified. Dictated by: Dictated on workstation # [id number]
--- NOTE | 2021-10-06 10:31 | Diagnostic Imaging Report ---
INDICATION: Fall left foot injury COMPARISON: None. FINDINGS: 3 views left foot demonstrate no overt fracture or dislocation. No bony erosion or foreign body is seen. IMPRESSION: No fracture identified. Dictated by: Dictated on workstation # [id number]
[2021-10-06] MEDS ORDERED: IBUPROFEN 800 MG (MOTRIN) TAB PO ONE (11:00)
== END 2021-10-06 11:26 | disposition home or self-care (01) ==
LOC: EDUNIT# 09:07 → ER 09:09
DX: S93.402A Sprain of unspecified ligament of left ankle, initial encounter (principal); S90.32XA Contusion of left foot, initial encounter; I10 Essential (primary) hypertension; E11.9 Type 2 diabetes mellitus without complications; G40.909 Epilepsy, unspecified, not intractable, without status epilepticus; G80.9 Cerebral palsy, unspecified; Z79.4 Long term (current) use of insulin; Z79.82 Long term (current) use of aspirin; Z79.84 Long term (current) use of oral hypoglycemic drugs; Z79.899 Other long term (current) drug therapy; W01.0XXA Fall on same level from slipping, tripping and stumbling without subsequent striking against object, initial encounter
CPT/HCPCS: 73610; 73630; 99281